=== PATIENT | female | born 1955 | race Caucasian/White ===

== ENCOUNTER 2017-01-16 16:33 | Inpatient (IN) | payer OTHER ==
[~2017-01-16] VITALS: Ht 172.7 cm; Wt 64.0 kg
[2017-01-16] MEDS ORDERED: SODIUM CHLORIDE 0.9% 1,000 ML IV ONE (16:50)
[2017-01-16] MEDS ORDERED: SODIUM CHLORIDE FLUSH 10ML SYR IVF ONE (17:00)
[2017-01-16 17:15] LABS: HEMOGLOBIN 10.4 g/dL (11.7-16.4)
[2017-01-16 17:19] LABS: ASPARTATE AMINO TRANSFERASE 152 U/L (15-37); BLOOD UREA NITROGEN 17 mg/dL (7-18)
[2017-01-16] MEDS ORDERED: ASPI81TA50 PO (17:27)
[2017-01-16] MEDS ORDERED: LISI40TA PO (17:27)
[2017-01-16] MEDS ORDERED: METF10002 PO ×2 (17:27)
[2017-01-16] MEDS ORDERED: GLIP5TAB10 PO (17:27)
[2017-01-16] MEDS ORDERED: SODIUM CHLORIDE 0.9% 1,000ML IVBOLUS ONE (17:30)
[2017-01-16 17:33] LABS: DIFF TOTAL CELLS COUNTED 100 CELL DIFF
[2017-01-16 17:35] LABS: VERIFY COUNTS? YES
[2017-01-16 17:36] LABS: ANISOCYTOSIS 1+; MICROCYTOSIS 1+; POLYCHROMASIA 1+
[2017-01-16] MEDS ORDERED: INSULIN REGULAR 100 UNITS/ML, 3ML VIAL IVPush ONE (18:00)
[2017-01-16] MEDS ORDERED: INSULIN SINGLE DOSE, ER SQ-INSULIN ONE (18:25)
[2017-01-16] MEDS ORDERED: DOCUSATE 100 MG CAPSULE PO PRN (20:00)
[2017-01-16] MEDS: HEPARIN 5,000 UNITS/ML, 1ML SQ SCH (20:00)
[2017-01-16] MEDS ORDERED: POLYETHYLENE GLYCOL 17 GM PACKET PO PRN (20:00)
[2017-01-16] MEDS ORDERED: MORPHINE SULFATE 4 MG/ML, 1ML IVPush PRN (20:00)
[2017-01-16] MEDS ORDERED: ONDANSETRON 2MG/ML, 2ML IVP PRN (20:00)
[2017-01-16] MEDS ORDERED: LABETALOL 5MG/ML, 20ML IV PRN (20:00)
[2017-01-16] MEDS ORDERED: BISACODYL 10 MG SUPP PR PRN (20:00)
[2017-01-16] MEDS: SODIUM CHLORIDE 0.9% 1,000 ML IV SCH (21:59)
[2017-01-16] MEDS: LISINOPRIL 20 MG TABLET PO SCH (22:01)
[2017-01-16] MEDS: INSULIN ASPART 100 UNITS/ML, PEN SQ-INSULIN SCH (22:08)
[2017-01-16 22:13] VITALS: BP 136/80
[2017-01-17 02:14] VITALS: BP 117/70
[2017-01-17] MEDS: SODIUM CHLORIDE 0.9% 1,000 ML IV SCH ×4 (03:14→21:43)
[2017-01-17] MEDS: HEPARIN 5,000 UNITS/ML, 1ML SQ SCH (04:00)
[2017-01-17 06:01] LABS: HEMOGLOBIN 8.9 g/dL (11.7-16.4)
[2017-01-17 06:13] LABS: BLOOD UREA NITROGEN 10 mg/dL (7-18)
[2017-01-17 06:28] LABS: ASPARTATE AMINO TRANSFERASE 161 U/L (15-37)
[2017-01-17 06:31] LABS: DIFF TOTAL CELLS COUNTED 100 CELL DIFF
[2017-01-17 06:33] LABS: VERIFY COUNTS? YES
[2017-01-17 06:34] LABS: ANISOCYTOSIS 1+; MICROCYTOSIS 1+; POLYCHROMASIA 1+
[2017-01-17 06:36] LABS: SPHEROCYTES 1+; TARGET CELLS 1+
[2017-01-17] MEDS: INSULIN ASPART 100 UNITS/ML, PEN SQ-INSULIN SCH ×4 (07:00→21:43)
[2017-01-17 07:28] VITALS: BP 123/73
[2017-01-17] MEDS: ASPIRIN 81 MG TABLET EC PO SCH (08:10)
[2017-01-17] MEDS: PANTOPRAZOLE 40 MG IV IVP SCH (08:20)
[2017-01-17] MEDS ORDERED: INSULIN ASPART 100 UNITS/ML, PEN SQ-INSULIN SCH ×3 (11:35→15:00)
[2017-01-17] MEDS: INSULIN DETEMIR 100 UNITS/ML, PEN SQ-INSULIN SCH (11:38)
[2017-01-17 14:04] VITALS: BP 127/78
[2017-01-17 19:08] VITALS: BP 121/74
[2017-01-17] MEDS: LISINOPRIL 20 MG TABLET PO SCH (20:10)
[2017-01-18 01:56] VITALS: BP 126/78
[2017-01-18] MEDS: SODIUM CHLORIDE 0.9% 1,000 ML IV SCH ×4 (02:40→20:57)
[2017-01-18] MEDS: TRAZODONE 50MG TABLET PO PRN (02:40)
[2017-01-18 06:00] LABS: BLOOD UREA NITROGEN 5 mg/dL (7-18)
[2017-01-18 06:04] LABS: HEMOGLOBIN 8.9 g/dL (11.7-16.4)
[2017-01-18 06:29] LABS: DIFF TOTAL CELLS COUNTED 100 CELL DIFF
[2017-01-18 06:29] LABS: ASPARTATE AMINO TRANSFERASE 140 U/L (15-37)
[2017-01-18 06:31] LABS: POLYCHROMASIA 1+; VERIFY COUNTS? YES
[2017-01-18 06:32] LABS: ANISOCYTOSIS 1+
[2017-01-18 06:34] LABS: SPHEROCYTES 1+
[2017-01-18] MEDS: INSULIN ASPART 100 UNITS/ML, PEN SQ-INSULIN SCH ×4 (07:00→21:00)
[2017-01-18 07:14] VITALS: BP 129/80
[2017-01-18] MEDS: PANTOPRAZOLE 40 MG IV IVP SCH (09:22)
[2017-01-18] MEDS: INSULIN DETEMIR 100 UNITS/ML, PEN SQ-INSULIN SCH (09:27)
[2017-01-18] MEDS: ASPIRIN 81 MG TABLET EC PO SCH (09:27)
[2017-01-18] MEDS ORDERED: KETOROLAC 30 MG/1 ML ONE (10:22)
[2017-01-18] MEDS ORDERED: PROPOFOL 10 MG/ML, 20ML ONE (10:22)
[2017-01-18] MEDS ORDERED: ROCURONIUM 10 MG/ML ONE (10:22)
[2017-01-18] MEDS ORDERED: FENTANYL PF 250 MCG/5ML ONE (13:42)
[2017-01-18] MEDS ORDERED: MIDAZOLAM 1 MG/ML, 2ML ONE (13:42)
[2017-01-18] MEDS ORDERED: ACETAMINOPHEN 325 MG TABLET PO PRN (14:30)
[2017-01-18] MEDS ORDERED: MIDAZOLAM 1 MG/ML, 2ML IV PRN (14:30)
[2017-01-18] MEDS ORDERED: HYDROmorphone 1 MG/ML, 1ML IV PRN (14:30)
[2017-01-18] MEDS ORDERED: METOPROLOL 1 MG/ML, 5ML IV PRN (14:30)
[2017-01-18] MEDS ORDERED: ONDANSETRON 2MG/ML, 2ML IVPush PRN (14:30)
[2017-01-18] MEDS ORDERED: MEPERIDINE/PF 25MG/0.5ML IVPush PRN (14:30)
[2017-01-18] MEDS ORDERED: hydrALAzine 20 MG/ML, 1ML IV PRN (14:30)
[2017-01-18] MEDS ORDERED: EPHEDRINE 50 MG/ML, 1ML IVPush PRN (14:30)
[2017-01-18] MEDS ORDERED: ALBUTEROL SULFATE 2.5 MG/3 ML NPPB PRN (14:30)
[2017-01-18] MEDS ORDERED: FENTANYL PF 100 MCG/2ML IV PRN (14:30)
[2017-01-18] MEDS ORDERED: LABETALOL 5MG/ML, 20ML IV PRN (14:30)
[2017-01-18] MEDS ORDERED: PROMETHAZINE 25 MG/ML, 1ML IV PRN (14:30)
[2017-01-18] MEDS ORDERED: OXYcodone 5 MG/5 ML ORAL.SOL UDC PO PRN (14:30)
[2017-01-18] MEDS ORDERED: CIPROFLOXACIN/PMX 400MG/200ML 200 ML ONE (16:15)
[2017-01-18 19:27] VITALS: BP 151/80
[2017-01-18] MEDS: LISINOPRIL 20 MG TABLET PO SCH (21:09)
[2017-01-18 23:49] VITALS: BP 124/72
[2017-01-19] MEDS: TRAZODONE 50MG TABLET PO PRN (00:38)
[2017-01-19 04:00] VITALS: BP 129/68
[2017-01-19] MEDS: SODIUM CHLORIDE 0.9% 1,000 ML IV SCH ×2 (04:42→11:18)
[2017-01-19] MEDS: CIPROFLOXACIN/PMX 400MG/200ML 200 ML IV SCH ×2 (04:42→18:44)
[2017-01-19 05:25] LABS: HEMOGLOBIN 9.1 g/dL (11.7-16.4)
[2017-01-19 05:44] LABS: ASPARTATE AMINO TRANSFERASE 89 U/L (15-37); BLOOD UREA NITROGEN 5 mg/dL (7-18)
[2017-01-19 05:45] LABS: DIFF TOTAL CELLS COUNTED 100 CELL DIFF
[2017-01-19 05:47] LABS: VERIFY COUNTS? YES
[2017-01-19 05:48] LABS: POLYCHROMASIA 1+
[2017-01-19 05:49] LABS: ANISOCYTOSIS 1+; MICROCYTOSIS 1+
[2017-01-19 05:50] LABS: LARGE PLATELETS 1+; SPHEROCYTES 1+
[2017-01-19] MEDS: INSULIN ASPART 100 UNITS/ML, PEN SQ-INSULIN SCH ×4 (07:00→21:35)
[2017-01-19] MEDS: PANTOPRAZOLE 40 MG IV IVP SCH (07:30)
[2017-01-19 07:45] VITALS: BP 123/67
[2017-01-19] MEDS: INSULIN DETEMIR 100 UNITS/ML, PEN SQ-INSULIN SCH (09:00)
[2017-01-19] MEDS: ASPIRIN 81 MG TABLET EC PO SCH (09:00)
[2017-01-19] MEDS ORDERED: LIDOCAINE 1%, 20ML ONE (12:53)
[2017-01-19] MEDS ORDERED: MIDAZOLAM 1 MG/ML, 5ML ONE ×2 (13:37→14:14)
[2017-01-19] MEDS ORDERED: FENTANYL PF 100 MCG/2ML ONE ×2 (13:38→14:14)
[2017-01-19] MEDS ORDERED: VISIPAQUE 270 MG/ML, 50ML BOTTLE ONE (14:04)
[2017-01-19 15:46] VITALS: BP 164/88
[2017-01-19 19:30] VITALS: BP 169/89
[2017-01-19] MEDS ORDERED: LABETALOL 5MG/ML, 20ML IV PRN (19:43)
[2017-01-19 20:01] VITALS: BP 157/83
[2017-01-19] MEDS: LISINOPRIL 20 MG TABLET PO SCH (20:38)
[2017-01-20 02:09] VITALS: BP 150/81
[2017-01-20] MEDS: CIPROFLOXACIN/PMX 400MG/200ML 200 ML IV SCH (04:01)
[2017-01-20 04:33] LABS: HEMOGLOBIN 9.6 g/dL (11.7-16.4)
[2017-01-20 04:40] LABS: ASPARTATE AMINO TRANSFERASE 65 U/L (15-37); BLOOD UREA NITROGEN 4 mg/dL (7-18)
[2017-01-20 05:03] LABS: DIFF TOTAL CELLS COUNTED 100 CELL DIFF
[2017-01-20 05:10] LABS: ANISOCYTOSIS 1+; POLYCHROMASIA 1+; VERIFY COUNTS? YES
[2017-01-20 05:11] LABS: LARGE PLATELETS 1+; SPHEROCYTES 1+; STOMATOCYTES 1+
[2017-01-20 07:34] VITALS: BP 151/80
[2017-01-20] MEDS: PANTOPRAZOLE 40 MG IV IVP SCH (07:56)
[2017-01-20] MEDS: INSULIN ASPART 100 UNITS/ML, PEN SQ-INSULIN SCH ×2 (07:57→11:08)
[2017-01-20] MEDS: ASPIRIN 81 MG TABLET EC PO SCH (07:58)
[2017-01-20] MEDS ORDERED: MIDAZOLAM 1 MG/ML, 5ML ONE (09:06)
[2017-01-20] MEDS ORDERED: FENTANYL PF 100 MCG/2ML ONE (09:06)
[2017-01-20] MEDS ORDERED: NALOXONE 1 MG/ML, 2ML ONE (09:07)
[2017-01-20] MEDS ORDERED: FLUMAZENIL 0.1 MG/1 ML, 5ML ONE (09:07)
[2017-01-20] MEDS ORDERED: VISIPAQUE 270 MG/ML, 50ML BOTTLE ONE (09:59)
[2017-01-20] MEDS ORDERED: POTASSIUM CHLORIDE 20 MEQ TAB.ER.PRT PO ONE (10:00)
[2017-01-20] MEDS ORDERED: METRONIDAZOLE PMX 500MG/100ML 100 ML IV SCH (10:00)
[2017-01-20] MEDS ORDERED: GADOBUTROL 10 MMOL/10 ML VIAL ONE (10:42)
[2017-01-20] MEDS: INSULIN DETEMIR 100 UNITS/ML, PEN SQ-INSULIN SCH (11:08)
[2017-01-20] MEDS ORDERED: METF500T PO (12:55)
[2017-01-20] MEDS ORDERED: INSU100V8 SQ (12:55)
== END 2017-01-20 14:47 | disposition home or self-care (01) | DRG 420 ==
LOC: ED 18:45 → EDIP 19:07 → 3NE 19:52 → 3NW 01-18 23:12
PROVIDERS: ADMIT Internal Medicine; ATTEND Internal Medicine
PROC: 0FB04ZX Excision of Liver, Percutaneous Endoscopic Approach, Diagnostic (ICD-10-PCS; 2017-01-18)
PROC: 0FJB8ZZ Inspection of Hepatobiliary Duct, Via Natural or Artificial Opening Endoscopic (ICD-10-PCS; 2017-01-18)
PROC: 0DB68ZX Excision of Stomach, Via Natural or Artificial Opening Endoscopic, Diagnostic (ICD-10-PCS; 2017-01-18)
PROC: 0FBG4ZX Excision of Pancreas, Percutaneous Endoscopic Approach, Diagnostic (ICD-10-PCS; 2017-01-18)
PROC: 0F793DZ Dilation of Common Bile Duct with Intraluminal Device, Percutaneous Approach (ICD-10-PCS; principal; 2017-01-19)
DX: K83.1 Obstruction of bile duct (principal); E43 Unspecified severe protein-calorie malnutrition; E87.1 Hypo-osmolality and hyponatremia; C78.7 Secondary malignant neoplasm of liver and intrahepatic bile duct; C25.9 Malignant neoplasm of pancreas, unspecified; Z68.1 Body mass index [BMI] 19.9 or less, adult; E87.2 Acidosis; E88.09 Other disorders of plasma-protein metabolism, not elsewhere classified; K26.9 Duodenal ulcer, unspecified as acute or chronic, without hemorrhage or perforation; E11.65 Type 2 diabetes mellitus with hyperglycemia; Z90.49 Acquired absence of other specified parts of digestive tract; Z83.3 Family history of diabetes mellitus; Z80.7 Family history of other malignant neoplasms of lymphoid, hematopoietic and related tissues; Z87.891 Personal history of nicotine dependence; D75.89 Other specified diseases of blood and blood-forming organs; D53.9 Nutritional anemia, unspecified; D72.829 Elevated white blood cell count, unspecified; I10 Essential (primary) hypertension; Z80.6 Family history of leukemia; Z90.710 Acquired absence of both cervix and uterus; Z85.038 Personal history of other malignant neoplasm of large intestine; Z68.21 Body mass index [BMI] 21.0-21.9, adult
CPT/HCPCS: 36415; 47531; 47537; 47540; 74183; 74328; 80053; 82140; 82247; 82248; 82607; 82746; 82947; 82962; 83036; 83690; 83735; 84439; 84443; 85025; 85610; 85730; 86301; 88172; 88173; 88177; 88305; 88307; 93005; 96361; 96374; 99156; 99157; A9585; C1725; C1894; J0744; J1815; J1885; J2250; J2704; J3010; J3490; Q9966; C1729; C1751; C1769; C1876; C9113; J2310; J7030